=== PATIENT | male | born 1970 | race Caucasian/White ===

== ENCOUNTER 2021-01-10 11:45 | Emergency (ER) | payer SELFPAY ==
[~2021-01-10] VITALS: Ht 167.6 cm; Wt 77.0 kg
[2021-01-10] MEDS ORDERED: VITAMINS (12:04)
[2021-01-10 14:00] VITALS: BP 101/54
== END 2021-01-10 14:02 | disposition home or self-care (01) ==
LOC: ER 11:53
DX: Z00.00 Encounter for general adult medical examination without abnormal findings (principal); Z98.890 Other specified postprocedural states
CPT/HCPCS: 99281